=== PATIENT | male | born 1935 | race Caucasian/White ===

== ENCOUNTER → 2018-05-31 11:10 | Outpatient (CLI) | payer MEDICARE, BC, SELFPAY ==
--- NOTE | 2018-05-31 11:18 | XR_ITS ---
XR KUB HISTORY: ITS.REASON: CONSTIPATION ORDERING PHYSICIAN: Ramy Restrepo MD PATIENT AGE: 82 years COMPARISON: None FINDINGS: Right mid abdominal calcification present at 9 mm and could represent a stone in the right renal pelvis. Nonspecific nonobstructive bowel gas pattern. Probable vascular calcification overlying the left kidney. IMPRESSION: Right nephrolithiasis
== END ==
PROVIDERS: PCP Family Medicine; Visit Provider Family Medicine
DX: K59.00 Constipation, unspecified (principal)
CPT/HCPCS: 74018

== ENCOUNTER → 2022-05-30 13:59 | Outpatient (CLI) | payer MEDICARE, BC, SELFPAY ==
--- NOTE | 2022-05-30 14:06 | CT_ITS ---
FINAL REPORT CLINICAL HISTORY: hematuria FINDINGS: Axial CT images of the abdomen and pelvis were obtained without intravenous contrast. Coronal reformatted images were also obtained.This study was performed with techniques to keep radiation doses as low as reasonably achievable (ALARA). Individualized dose reduction techniques using automated exposure control or adjustment of mA and/or kV according to the patient's size were employed. Abdomen: There there is mild bibasilar atelectasis or scarring. There is moderate right hydronephrosis without evidence of hydroureter. There is a stone in the right renal pelvis measuring 15 mm with a mean attenuation value of 1350 Hounsfield units. There are multiple small bilateral renal masses which cannot be accurately characterized without contrast. Two masses in the right kidney do not appear to be simple cysts and a 21 mm mass in the medial left kidney shows partial peripheral calcification. The liver, spleen and pancreas have an unremarkable, unenhanced appearance. No inflammatory process is identified. There are moderate vascular calcifications. Pelvis: The appendix is not seen. Images of the pelvis reveal no evidence of ureteral dilation or ureteral stone. 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 There is descending and sigmoid diverticulosis. No mass or abnormal fluid collection is identified. IMPRESSION: Moderate right hydronephrosis with a calcification in the right renal pelvis. Multiple small renal masses, some of which do not appear to be simple cysts. These could be further evaluated with a renal mass protocol CT. Reviewed, Interpreted and Dictated by Darrick Casper III, MD Transcribed by Patricia Paul Authenticated and [facility]
== END ==
PROVIDERS: PCP Family Medicine; Visit Provider Urology
DX: R31.9 Hematuria, unspecified (principal)
CPT/HCPCS: 74176

== ENCOUNTER → 2022-06-08 09:21 | Outpatient (CLI) | payer MEDICARE, BC, SELFPAY | PROVIDERS: PCP Family Medicine; Visit Provider Urology | DX: R31.9 Hematuria, unspecified (principal); Z01.812 Encounter for preprocedural laboratory examination; Z20.822 Contact with and (suspected) exposure to COVID-19 | CPT/HCPCS: C9803; U0003; U0005 ==

== ENCOUNTER 2022-06-10 08:32 | Day surgery (SDC) | payer MEDICARE, BC, SELFPAY ==
[2022-06-06 10:39] VITALS: BMI 26.4
[2022-06-10 09:11] VITALS: BP 148/68; PULSE 59; RESP 18; TEMP 36.2; O2SAT 97
[2022-06-10 11:18] VITALS: BP 137/65; PULSE 55; RESP 16; TEMP 36.3; O2SAT 97
--- NOTE | 2022-06-10 11:47 | EXP.OP.NOTE ---
Date of procedure: 06/10/22 Pre-op Diagnosis:: Microhematuria Post-op Diagnosis:: Microhematuria, right kidney stone, BPH Procedure performed:: Cystoscopy Surgeon:: Nixon Noonan MD Anesthesia: local Estimated blood loss (mL): 0 Clinical Note:: 86-year-old white male with proteinuria and microscopic hematuria presents for urologic work-up. CT scan performed 11 days ago showed a 1.5 cm stone in the right renal pelvis with right-sided hydronephrosis. Operative findings:: Cystoscopy today showed some mild trabeculation, a right-sided Hutch diverticulum and BPH. Operative note:: Patient taken to the cystoscopy suite after informed consent was obtained. On the stretcher he was prepped and draped in the standard surgical fashion and 2% lidocaine placed into the urethra and clamped. After 5 minutes the clamp was removed and the flexible cystoscope introduced into the urethral meatus. Scope passed to the prostatic urethra which showed some moderate hyperplasia. The bladder was entered and examined in a systematic fashion. There was no evidence of mucosal abnormalities, stones. There was some mild trabeculation and a [place] right-sided Hutch diverticulum. The ureteral orifices in their normal anatomic position with clear efflux of urine. Scope then retroflexed showing a small median lobe. Scope then removed. Patient tolerated the procedure well there are no complications. We discussed the cystoscopic findings and CT findings today. I recommend we proceed with treatment for the right-sided renal stone with cystoscopy, right stent placement and right ESWL. We will set this up at his earliest convenience. Condition: stable Disposition: same day Specimens:: None Complications:: None
[2022-06-10 11:55] VITALS: BP 137/65; PULSE 55; RESP 16; TEMP 36.3; O2SAT 97
== END 2022-06-10 11:55 | disposition home or self-care (01) ==
PROVIDERS: PCP Family Medicine; Visit Provider Urology
DX: N40.0 Benign prostatic hyperplasia without lower urinary tract symptoms (principal); R31.29 Other microscopic hematuria; N20.0 Calculus of kidney; R80.9 Proteinuria, unspecified
CPT/HCPCS: 52000

== ENCOUNTER → 2022-06-22 08:50 | Outpatient (CLI) | payer MEDICARE, BC, SELFPAY ==
[2022-06-22 08:55] LABS: MANUAL DIFFERENTIAL MANUAL DIFFERENTIAL (MANUAL DIFF)
[2022-06-22 09:21] LABS: Basophils # 0.1 K/mm3 (0-0.2); Basophils % 0.7 % (0.1-2.0); Eosinophils # 0.2 K/mm3 (0.0-0.4); Eosinophils % 3.3 % (0.1-12.0); Hematocrit 42.8 % (42.0-52.0); Hemoglobin 13.4 g/dL (14.1-18.0); Lymphocytes # 2.2 K/mm3 (0.7-4.5); Lymphocytes % 31.2 % (10-50); Mean Corpuscular HGB Conc 31.4 g/dL (31.8-35.4); Mean Corpuscular Hemoglobin 31.1 pg (27.0-31.2); Mean Platelet Volume 9.7 fl (7.4-10.4); Monocytes # 0.4 K/mm3 (0.1-1.0); Monocytes % 5.4 % (1.7-9.3); Neutrophils # 4.2 K/mm3 (1.8-7.8); Neutrophils % 59.4 % (37.0-80.0); Platelet Count 223 K/mm3 (142-424); Red Blood Count 4.32 M/mm3 (4.60-6.20); Red Cell Distribution Width 12.4 % (11.5-17.5)
[2022-06-22 10:22] LABS: Anion Gap 11.3 mEq/L (5-15); Blood Urea Nitrogen 18 mg/dl (9-20); Calcium 8.8 mg/dl (8.4-10.2); Carbon Dioxide 25 mmol/L (22.0-30.0); Chloride 106 mmol/L (98-107); Estimated Glomerular Filt Rate 58 ml/min (>60); GFR (African American) 70 ML/MIN (>60); Glucose 122 mg/dl (74-100); Potassium 4.3 mmoL/L (3.5-5.1); Sodium 138 mmol/L (136-145)
[2022-06-22 10:41] LABS: Eosinophils % 4 % (0-3); Lymphocytes % 29 % (10-50); Macrocytosis 1+; Monocytes % 2 % (2-9); Neutrophils % 65 % (42-76); Platelet Estimate Normal; Total Cells Counted 100
== END ==
PROVIDERS: PCP Family Medicine; Visit Provider Urology
DX: N20.0 Calculus of kidney (principal); Z01.812 Encounter for preprocedural laboratory examination; Z20.822 Contact with and (suspected) exposure to COVID-19
CPT/HCPCS: 36415; 80048; 85007; 85014; 85018; 85048; 85049; C9803; U0003; U0005

== ENCOUNTER 2022-06-24 09:39 | Day surgery (SDC) | payer MEDICARE, BC, SELFPAY ==
[2022-06-24] VITALS (11 sets, daily range): BP systolic 115–140; BP diastolic 50–65; PULSE 50–62; RESP 14–20; TEMP 36.1–36.5; O2SAT 93–98; BMI 29.0
--- NOTE | 2022-06-24 10:03 | XR_ITS ---
FINAL REPORT CLINICAL HISTORY: pre op- kidney stone COMPARISON: May 31, 2018 FINDINGS: A single view of the abdomen was obtained. There is a nonobstructive bowel gas pattern. There are no abnormally dilated loops of small bowel. There is a moderate amount of retained stool. There is a 15 mm stone in the right kidney that previously measured 8 mm. There is no definite left renal stone. There are mild vascular calcifications. There are degenerative changes in the lumbar spine. IMPRESSION: Right renal stone that is increased in size since the prior exam. No definite left renal stone. Reviewed, Interpreted and Dictated by Darrick Casper III, MD Transcribed by Patricia Paul Authenticated and [facility]
--- NOTE | 2022-06-24 11:58 | P.OP_ITS ---
Date of procedure: 06/24/22 Pre-op Diagnosis:: 1.5 cm right renal pelvic stone Post-op Diagnosis:: Same Procedure performed:: Right ESWL with cystoscopy and right stent placement Surgeon:: Nixon Noonan MD MAIL ORDER SORTER:: Other Anesthesia: LMA Estimated blood loss (mL): 0 Clinical Note:: 86-year-old white male with history of microhematuria. Recent work-up revealed a 1.5 cm stone in the right renal pelvis. Cystoscopic work-up showed no evidence of mucosal abnormalities in the bladder. Operative findings:: Preoperative KUB reveals the 1.5 cm stone in the right renal pelvis. Right stent was placed and 3000 shockwaves were delivered to the stone with a nice cloud effect. Operative note:: Patient taken to the operating room after informed consent was obtained. He was placed on the operating table in supine position and general anesthesia administered. Preoperative antibiotics and sequential compression devices placed. He was then placed into the dorsolithotomy position and prepped and draped in standard surgical fashion. The 22 Thomas passed into the urethra and into the bladder without difficulty. The bladder was examined in a systematic fashion and no mucosal maladies were noted. Again a large Hutch diverticulum noted in the right lateral aspect of the bladder. The ureteral orifices in their normal anatomic position. A guidewire was passed into the right ureteral orifice and under fluoroscopy passed the stone and into the upper pole without difficulty. A 6 x 26 Bangladeshi stent then passed over the guidewire and under fluoroscopy the wire was removed and a good curl was noted proximally and distally. The string was left on for later removal. Patient then placed into the supine position and padded appropriately. His legs were placed on a l eg roll and mineral oil placed behind the flank. The lithotripter focused onto the stone and starting at the leading edge a total of 3000 shockwaves at a rate of 120 were delivered. The first 100 shockwaves were at 60 and the second 100 were at 90-minute. There was good cloud effect noted after ESWL. Patient tolerated procedure well no complications. Condition: stable Disposition: PACU Specimens:: None Complications:: None
--- NOTE | 2022-06-24 12:28 | SUR.PHASEI ---
1224 detailed report called to Maine Madrid RN [id number] transported via stretcher to post op. vital signs stable. denies pain. left in stable condition with Maine Madrid RN at bedside.
--- NOTE | 2022-06-24 13:24 | P.PNANES_ITS ---
[facility] Anesthesia Record Part II Anesthesia Record Part II Discharge Time: 12:28 Destination: Surgical Day Care (OP Surgery) PACU nurse assessment reviewed?: Yes Patient Condition:: Good Anesthesia Complications:: None Swallowing reflex intact?: Yes Cyanosis?: No Blood Pressure: 122/53 Pulse Rate: 54 Temperature: 97 F Mental Status: Alert & Oriented Pain level:: 0 Nausea and/or vomitting:: None Intake, IV Amount: 0
--- NOTE | 2022-06-24 14:17 | P.PN_ITS ---
[facility] Medical History Arthritis HTN (hypertension) Hyperlipidemia Hypothyroid Surgical History S/P orchiectomy Family History Other Cancer Social History Smoking Status: Former smoker alcohol intake: never substance use type: denies use current occupational status: retired Travel in the last 8 weeks: None housing: house caffeine: Yes [facility] Anesthesia Checklist Patient Identification Patient Identification: Arm Band Structural Data Admitted From: Home Planned Operative Procedure/s: Eswal and Right Cysto Consent for Planned Operative Procedure(s) Verified: Yes Verified Documents: Surgical Consent and History and Physical Additional verifications Anesthesia Reactions: No Hx Blood Transfusions: No Blood Transfusion Reaction: No Cephalosporin Allergy: No Airway Assessment C-Spine Mobility Assessed: Yes TMJ Mobility Assessed: Yes Dentition: Dentures-good fit Neurological Assessment Level of Consciousness: Awake, Alert, Appropriate and Follows Commands Hx Seizures: No Numbness or tingling in extremities: No Genitourinary Assessment Voided supervisor extrusion to O.R.: No Urinary Incontinence: Functional Anesthesia Plan Anesthesia Risk discussed: Yes ASA Class: II Anesthesia Type: General
--- NOTE | 2022-06-24 14:19 | SUR.OPER ---
1123- ESL started at this time
--- NOTE | 2022-06-24 14:20 | P.PNANES_ITS ---
[facility] Anesthesia Record Part I Anesthesia Record I Intake, IV Amount: 450 Estimated blood loss (mL): 0 Urine output (mL): 0 Blood Products used (#): none Blood Pressure: 119/51 SaO2: 94 Pulse Rate: 58 Respiratory Rate: 20 Temperature: 97 F Patient is:: Drowsy and Stable Stable to PACU at:: 11:58
--- NOTE | 2022-06-27 12:11 | EXP.ANES.II ---
[facility] Anesthesia Record Part II Anesthesia Record Part II Discharge Time: 12:28 Destination: Surgical Day Care (OP Surgery) PACU nurse assessment reviewed?: Yes Patient Condition:: Good Anesthesia Complications:: None Swallowing reflex intact?: Yes Cyanosis?: No Blood Pressure: 122/53 Pulse Rate: 54 Temperature: 97 F Mental Status: Alert & Oriented Pain level:: 0 Nausea and/or vomitting:: None Intake, IV Amount: 0
[2022-06-27 12:12] VITALS: BP 122/53; PULSE 54; TEMP 36.1
== END 2022-06-24 13:12 | disposition home or self-care (01) ==
PROVIDERS: PCP Family Medicine; Visit Provider Urology
DX: N20.0 Calculus of kidney (principal); R31.29 Other microscopic hematuria; Z79.899 Other long term (current) drug therapy
CPT/HCPCS: 50590; 52332; 74018; 96374; C2617; J2405

== ENCOUNTER → 2022-07-01 13:01 | Outpatient (CLI) | payer MEDICARE, BC, SELFPAY ==
--- NOTE | 2022-07-01 13:08 | XR_ITS ---
FINAL REPORT CLINICAL HISTORY: ureteral stone COMPARISON: June 24, 2022 FINDINGS: SINGLE VIEW ABDOMEN A single view of the abdomen was obtained. There has been interval placement of a right ureteral stent. There is a nonobstructive bowel gas pattern. There are no abnormally dilated loops of small bowel. There are multiple stones in the region of the right renal pelvis measuring up to 12 mm. There is mild vascular calcification. There are degenerative changes of the spine. IMPRESSION: Interval placement of right ureteral stent. Right nephrolithiasis. Reviewed, Interpreted and Dictated by Darrick Casper III, MD Transcribed by Everardo Chiu Authenticated and [facility]
== END ==
PROVIDERS: PCP Family Medicine; Visit Provider Urology
DX: N20.1 Calculus of ureter (principal)
CPT/HCPCS: 74018

== ENCOUNTER → 2022-07-15 13:58 | Outpatient (CLI) | payer MEDICARE, BC, SELFPAY ==
--- NOTE | 2022-07-15 14:03 | XR_ITS ---
FINAL REPORT CLINICAL HISTORY: kidney stone COMPARISON: May 31, 2018 FINDINGS: SINGLE VIEW ABDOMEN A single view of the abdomen was obtained. There is a nonobstructive bowel gas pattern. There are no abnormally dilated loops of small bowel. Right intraureteral stent. Numerous right renal stones within the calices and renal pelvis. Largest stone measuring 13 x 8 mm. Curvilinear density overlying the distal stent considered vascular in nature. IMPRESSION: Right nephrolithiasis with stent in place. Reviewed, Interpreted and Dictated by Ted Rebollar MD Transcribed by Everardo Chiu Authenticated and [facility]
== END ==
PROVIDERS: PCP Family Medicine; Visit Provider Urology
DX: N20.0 Calculus of kidney (principal)
CPT/HCPCS: 74018

== ENCOUNTER 2023-07-29 19:08 | Emergency (ER) | payer MEDICARE, BC, SELFPAY ==
[2023-07-29 19:10] VITALS: BP 131/58; PULSE 62; RESP 18; TEMP 36.4; O2SAT 98; BMI 26.2
[2023-07-29 19:24] LABS: Microscopic, Urine URINE MICROSCOPIC (MICROSCOPIC)
[2023-07-29 19:29] LABS: Appearance,Urine CLOUDY (Clear); Blood, Urine 3+ (Negative); Color,Urine BROWN (Yellow); Glucose,Urine (UA) Negative (Negative); Ketones,Urine Negative (Negative); Leukocyte Esterase,Urine 2+ (Negative); Nitrate,Urine POSITIVE (Negative); PH,Urine 6.5 (5.0-8.5); Protein,Urine 2+ (Negative); Specific Gravity, Urine 1.025 (1.005-1.030)
--- NOTE | 2023-07-29 19:43 | HMH.EDGENADL ---
Discharge Plan Disposition Patient Disposition: Home, Self-Care Prescriptions Prescriptions: New cefdinir 300 mg capsule 300 mg PO BID 10 Days Qty: 20 0RF No Action nifedipine 30 mg tablet extended release 30 mg PO DAILY simvastatin 80 mg tablet 80 mg PO DAILY metoprolol succinate 25 mg tablet extended release 24 hr 25 mg PO DAILY tamsulosin 0.4 mg capsule 0.4 mg PO HS Patient Comments: TAKE 1 CAPSULE BY MOUTH EVERY DAY AT BEDTIME levothyroxine 25 mcg tablet 25 mcg PO DAILY Patient Comments: TAKE 1 TABLET BY MOUTH ONCE DAILY Referrals Follow up/Referrals: Ramy Restrepo MD [Primary Care Provider] - See instructions Activity Restrictions/Add. Instructions Additional Instructions/Restrictions: Call your family doctor to establish care for this visit to the emergency department and schedule follow-up within 48 hours to ensure improvement. If you have any worsening of your condition or any other concerning signs or symptoms, return to the emergency department or your primary care doctor for further evaluation. Antibiotic twice daily for 10 days. Be sure to stay hydrated with this antibiotic. Clinical Impressions Clinical Impression: Acute pyelonephritis Instructions Patient Instructions: DI for Acute Abdominal Pain Discharge ED Provider: Mark Tang General Adult HPI General Chief complaint: Abdominal Pain Stated complaint: blood in urine Time Seen by Provider: 07/29/23 19:10 Mode of Arrival: Ambulatory Source of Information: Patient Limitations: No Limitations Description of Symptoms (Recalled from ER Triage Doc. by RN): pt has hx of kidney stone surgery with , last one was 3 months ago at [place], pt is here [facility] at 1630 today he noted blood in urine, denies any N/V or pelvic/flank pain and no fever. History of Present Illness HPI narrative: 87-year-old male with previous [id number] smoking history not currently smoking, nephrolithiasis, hypertension, hyperlipidemia, hypothyroidism, all well controlled presenting with hematuria. Patient states that he has had numerous kidney stones in the past, but those were painful. Patient states that today, 07/29, he was urinating earlier today when his urine suddenly turned red. Did not think anything of it at that time given his history of kidney stones. Just before arrival, patient states that he was urinating again, initially started off as yellow urine, but became red/pink concerning for hematuria. No chest pain, difficulty or pain with urinating, fevers or chills, or any other concerns. Related Data Home Medications Medication Instructions Recorded Confirmed nifedipine 30 mg tablet,extended 30 mg PO DAILY High blood pressure 08/11/20 07/15/22 release metoprolol succinate 25 mg 25 mg PO DAILY High blood pressure 05/24/22 07/15/22 tablet,extended release 24 hr simvastatin 80 mg tablet 80 mg PO DAILY Cholesterol 05/24/22 07/15/22 levothyroxine 25 mcg tablet 25 mcg PO DAILY 07/15/22 07/15/22 tamsulosin 0.4 mg capsule 0.4 mg PO HS 07/15/22 07/15/22 Previous Rx's Medication Instructions Recorded cefdinir 300 mg capsule 300 mg PO BID 10 days #20 caps 07/29/23 Allergies Allergy/AdvReac Type Severity Reaction Status Date / Time No Known Allergies Allergy Verified 07/15/22 13:07 [facility] Disclaimer: The information contained in this section may have been updated after the patient was seen, as this information can be updated by other users. Medical History Arthritis HTN (hypertension) Hyperlipidemia Hypothyroid Surgical History S/P orchiectomy Family History Other Cancer Social History Smoking Status: Former smoker alcohol intake: never subst
[2023-07-29 19:50] LABS: Bilirubin,Urine 2+ (Negative)
[2023-07-29 19:51] LABS: Bacteria,Urine 2+ /lpf; RBC,Urine TNTC #/hpf (0-3)
[2023-07-29 19:58] LABS: Basophils % 0.4 % (0.1-2.0); Eosinophils # 0.2 K/mm3 (0.0-0.4); Eosinophils % 3.2 % (0.1-12.0); Hematocrit 39.3 % (42.0-52.0); Hemoglobin 13.3 g/dL (14.1-18.0); Lymphocytes # 2.1 K/mm3 (0.7-4.5); Lymphocytes % 33.2 % (10-50); Mean Corpuscular HGB Conc 33.8 g/dL (31.8-35.4); Mean Corpuscular Hemoglobin 33.2 pg (27.0-31.2); Mean Corpuscular Volume 98.1 fl (80-94); Monocytes # 0.5 K/mm3 (0.1-1.0); Monocytes % 7.1 % (1.7-9.3); Neutrophils # 3.6 K/mm3 (1.8-7.8); Neutrophils % 56.1 % (37.0-80.0); Platelet Count 179 K/mm3 (142-424); Red Blood Count 4.01 M/mm3 (4.60-6.20); Red Cell Distribution Width 12.6 % (11.5-17.5); White Blood Count 6.4 K/mm3 (4.8-10.8)
[2023-07-29 19:59] LABS: Alanine Aminotransferase 20 U/L (12-78); Albumin Level 4.4 g/dl (3.5-5.0); Albumin/Globulin Ratio 1.4 (1.1-1.8); Alkaline Phosphatase 51 U/L (38-126); Aspartate Amino Transferase 35 U/L (17-59); Bilirubin,Total 0.7 mg/dl (0.2-1.3); Blood Urea Nitrogen 24 mg/dl (9-20); Calcium 9.4 mg/dl (8.4-10.2); Carbon Dioxide 28 mmol/L (22.0-30.0); Chloride 102 mmol/L (98-107); Creatinine Clearance Estimated 51 mL/min (50-200); Estimated Glomerular Filt Rate 48 ml/min (>60); GFR (African American) 58 ML/MIN (>60); Globulin 3.1 g/dL (1.3-3.2); Glucose 106 mg/dl (74-100); Sodium 139 mmol/L (136-145); Total Protein,Serum 7.5 g/dl (6.3-8.2)
[2023-07-29 20:36] VITALS: BP 139/58; PULSE 60; RESP 18; TEMP 36.8; O2SAT 99
--- NOTE | 2023-08-05 18:14 | PC.NURSE ---
urine culture on worklist, growing Serratia Marcescens, notified dr. leach, pt d/c on cefidinr. Dr. Leach reviewed id and sensitivity, states no further action needed.
== END 2023-07-29 20:38 | disposition home or self-care (01) ==
PROVIDERS: Emergency Provider Emergency Medicine; PCP Family Medicine
DX: N10 Acute pyelonephritis (principal); B96.89 Other specified bacterial agents as the cause of diseases classified elsewhere; I10 Essential (primary) hypertension; E78.5 Hyperlipidemia, unspecified; E03.9 Hypothyroidism, unspecified; M19.09 Primary osteoarthritis, other specified site; Z87.891 Personal history of nicotine dependence
CPT/HCPCS: 80053; 81001; 85025; 87086; 96361; 96374; 99284; J0696